=== PATIENT | male | born 1955 ===

== ENCOUNTER 2020-09-26 12:19 | Outpatient (CLI) | payer MEDICARE, SELFPAY | END 2020-09-26 12:20 | disposition home or self-care (01) | LOC: CHSIMG 12:25 | PROVIDERS: PCP Physician Assistant; Visit Provider Specialist | DX: I34.0 Nonrheumatic mitral (valve) insufficiency (principal) | CPT/HCPCS: 93306 ==

== ENCOUNTER 2021-05-04 08:17 | Outpatient (CLI) | payer MEDICARE, SELFPAY ==
--- NOTE | ~2021-05-04 | XR_ITS ---
EXAMINATION: XR sacroiliac joints min 3V INDICATION: Acute left hip pain TECHNIQUE: Three views of the sacroiliac joints are obtained. COMPARISON: None available FINDINGS: There is no fracture, dislocation, or subluxation. No abnormal sclerosis or erosion of the sacroiliac joints is identified. Calcified atherosclerosis is noted. There is moderate osteoarthritis of the hips. IMPRESSION: 1. No acute osseous abnormality. Reviewed, dictated and finalized at location B.
--- NOTE | ~2021-05-04 | XR_ITS ---
EXAMINATION: XR hip LT 2V w AP pelvis INDICATION: Left hip pain TECHNIQUE: AP view the pelvis and two views of the left hip are obtained. COMPARISON: None available FINDINGS: Bone alignment is normal. There is no fracture. There is moderate osteoarthritis of the hip s. Lumbar spondylosis is noted. There is calcified atherosclerosis. IMPRESSION: 1. No acute osseous abnormality. Reviewed, dictated and finalized at location B.
== END 2021-05-04 08:18 | disposition home or self-care (01) ==
PROVIDERS: PCP Physician Assistant; Visit Provider Nurse Practitioner
DX: M25.552 Pain in left hip (principal)
CPT/HCPCS: 72202; 73502

== ENCOUNTER 2021-11-23 08:57 | Outpatient (CLI) | payer MEDICARE, SELFPAY ==
[2021-11-23 09:26] LABS: Basophils Absolute Auto 0.07 K/mm3 (0.00-0.10); Eosinophils Absolute Auto 0.32 K/mm3 (0.02-0.50); Eosinophils Percent Auto 4.5 % (1.0-6.0); Hematocrit 48.1 % (37.0-46.0); Hemoglobin 15.5 g/dL (12.4-15.3); Immature Granulocyte Absolute 0.03 K/mm3 (0.00-0.00); Immature Granulocyte Percent A 0.4 % (0.0-0.0); Lymphocytes Absolute Auto 1.78 K/mm3 (1.10-4.50); Lymphocytes Percent Auto 25.1 % (18.0-42.0); Mean Corpuscular HGB Conc 32.2 g/dL (32.0-36.0); Mean Corpuscular Hemoglobin 32.9 pg (27.0-31.0); Mean Corpuscular Volume 102.1 fL (78.0-102.0); Mean Platelet Volume 10.7 fl (8.7-11.0); Monocytes Absolute Auto 0.51 K/mm3 (0.10-0.90); Monocytes Percent Auto 7.2 % (2.0-11.0); Neutrophils Absolute Auto 4.4 K/mm3 (1.7-7.2); Neutrophils Percent Auto 61.8 % (50.0-70.0); Platelet Count Result 221 K/mm3 (150-420); Red Blood Count 4.71 M/mm3 (4.70-6.10); Red Cell Distribution Width 12.4 % (11.6-14.4); White Blood Count 7.1 K/mm3 (4.8-10.8)
[2021-11-23 09:39] LABS: Prothrombin Time 10.8 Seconds (9.50-12.10)
[2021-11-23 10:20] LABS: Anion Gap 9 mmol/L (8-16); Blood Urea Nitrogen 27 mg/dL (7-18); Calcium 8.9 mg/dL (8.5-10.1); Carbon Dioxide 25 mmol/L (21-32); Chloride 100 mmol/L (98-108); Estimated Glomerular Filt Rate 46; Glucose 106 mg/dL (70-99); Magnesium 2.2 mg/dL (1.8-2.4); Osmolality Calculated 283 mOsm/kg (285-295); Potassium 4.6 mmol/L (3.5-5.1); Sodium 134 mmol/L (136-145)
== END 2021-11-23 08:58 | disposition home or self-care (01) ==
LOC: CHSLAB 09:02
PROVIDERS: PCP Physician Assistant; Visit Provider Specialist
DX: R94.39 Abnormal result of other cardiovascular function study (principal); Z95.1 Presence of aortocoronary bypass graft; I25.5 Ischemic cardiomyopathy; I25.119 Atherosclerotic heart disease of native coronary artery with unspecified angina pectoris
CPT/HCPCS: 36415; 80048; 83735; 85025; 85610

== ENCOUNTER 2022-10-09 11:12 | Outpatient (CLI) | payer MEDICARE, SELFPAY ==
[2022-10-09 11:37] LABS: Basophils Absolute Auto 0.06 K/mm3 (0.00-0.10); Basophils Percent Auto 0.7 % (0.0-1.0); Eosinophils Absolute Auto 0.37 K/mm3 (0.02-0.50); Eosinophils Percent Auto 4.2 % (1.0-6.0); Hematocrit 43.8 % (37.0-46.0); Hemoglobin 14.6 g/dL (12.4-15.3); Immature Granulocyte Absolute 0.04 K/mm3 (0.00-0.00); Immature Granulocyte Percent A 0.4 % (0.0-0.0); Lymphocytes Absolute Auto 1.95 K/mm3 (1.10-4.50); Lymphocytes Percent Auto 21.9 % (18.0-42.0); Mean Corpuscular HGB Conc 33.3 g/dL (32.0-36.0); Mean Corpuscular Hemoglobin 32.3 pg (27.0-31.0); Mean Corpuscular Volume 96.9 fL (78.0-102.0); Mean Platelet Volume 9.6 fl (8.7-11.0); Monocytes Absolute Auto 0.51 K/mm3 (0.10-0.90); Monocytes Percent Auto 5.7 % (2.0-11.0); Neutrophils Percent Auto 67.1 % (50.0-70.0); Platelet Count Result 223 K/mm3 (150-420); Red Blood Count 4.52 M/mm3 (4.70-6.10); Red Cell Distribution Width 13.4 % (11.6-14.4); White Blood Count 8.9 K/mm3 (4.8-10.8)
[2022-10-09 11:57] LABS: Hemoglobin A1C 5.9 % (<5.7)
[2022-10-09 12:10] LABS: Alanine Aminotransferase 33 U/L (16-63); Albumin Level 3.7 g/dL (3.4-5.0); Alkaline Phosphatase 98 U/L (46-116); Anion Gap 9 mmol/L (8-16); Aspartate Amino Transferase 23 U/L (15-37); Bilirubin,Total 0.9 mg/dL (0.00-1.00); Blood Urea Nitrogen 23 mg/dL (7-18); Calcium 8.7 mg/dL (8.5-10.1); Carbon Dioxide 27 mmol/L (21-32); Chloride 100 mmol/L (98-108); Cholesterol 165 mg/dL (0-200); Estimated Glomerular Filt Rate 51; Glucose 117 mg/dL (70-99); HDL Direct 61 mg/dL (40-60); LDL Cholesterol Calculated 91 mg/dL (<130); Osmolality Calculated 286 mOsm/kg (285-295); Potassium 4.6 mmol/L (3.5-5.1); Sodium 136 mmol/L (136-145); Thyroid Stimulating Hormone 2.78 uIU/mL (0.36-3.74); Total Protein 7.3 g/dL (6.4-8.2); Triglycerides 64 mg/dL (0-150)
== END 2022-10-09 11:13 | disposition home or self-care (01) ==
PROVIDERS: PCP Physician Assistant; Visit Provider Physician Assistant
DX: I10 Essential (primary) hypertension (principal); E78.5 Hyperlipidemia, unspecified; R73.03 Prediabetes; Z13.21 Encounter for screening for nutritional disorder
CPT/HCPCS: 36415; 80053; 80061; 83036; 84443; 85025

== ENCOUNTER 2023-12-18 14:59 | Emergency (ER) | payer MEDICARE, SELFPAY ==
--- NOTE | ~2023-12-18 | CT_ITS ---
CT abdomen pelvis wo con Ordering provider: Greg Patel MD History: 68 years Male with . back/flank pain radiating to his right groin . Comparison: None. Technique: CT abdomen and pelvis without IV and without oral contrast. Radiation reduction technique utilized.DLP is 827.11mGy. Findings: VISUALIZED LOWER CHEST: Normal. UPPER ABDOMINAL ORGANS: Liver: Normal. Gallbladder: Status post cholecystectomy. Spleen: Normal. Stomach/duodenum: Sliding hiatus hernia. Pancreas: Normal. Adrenals: Normal. Kidneys: Small hypodensity in the left kidney upper pole most likely tiny cyst measuring 1.2 cm. PELVIC ORGANS: The bladder shows thickening of the wall of the urinary bladder which may indicate cys titis. Further evaluation advised. Enlarged prostate. BOWEL AND MESENTERY: Colon: No evidence of diverticulitis. Normal appendix. Small Bowel: Normal. No obstruction. Peritoneum/mesentery: No free air or free fluid. No mesenteric lymphadenopathy. RETROPERITONEUM: Mild atheromatous disease of the abdominal aorta. No retroperitoneal lymphadenopat hy. MUSCULOSKELETAL: Fat containing small umbilical hernia. Bilateral fat-containing inguinal hernias Superficial soft tissues: The superficial soft tissues are normal. Bones: Age appropriate degenerative changes of the spine. IMPRESSION: 1. Atrophic right kidney with surrounding fat stranding. 2. Thickened wall of the urinary bladder. There evaluation for cystitis or infiltrative processes ad vised. Enlarged prostate. Reviewed, dictated and finalized at location A. IMPRESSION: 1. Atrophic right kidney with surrounding fat stranding. 2. Thickened wall of the urinary bladder. There evaluation for cystitis or inf iltrative processes advised. Enlarged prostate.
[2023-12-18 15:00] VITALS: BP 155/76; PULSE 65; RESP 24; TEMP 36.8; O2SAT 99
[2023-12-18] MEDS: SODIUM CHLORIDE 0.9% IV 1,000 ML 999 ML IV CONT (15:27)
[2023-12-18] MEDS: KETOROLAC 30 MG/ML VIAL (*BKC) IV PUSH (15:30)
[2023-12-18 15:36] LABS: Appearance Urine Clear (Clear); Basophils Absolute Auto 0.03 K/mm3 (0.00-0.10); Basophils Percent Auto 0.4 % (0.0-1.0); Bilirubin Urine Negative (Negative); Blood Urine Negative (Negative); Color Urine Yellow (Yellow); Eosinophils Absolute Auto 0.41 K/mm3 (0.02-0.50); Eosinophils Percent Auto 5.9 % (1.0-6.0); Glucose Urine UA Negative (Negative); Hematocrit 43.4 % (37.0-46.0); Hemoglobin 14.5 g/dL (12.4-15.3); Immature Granulocyte Absolute 0.02 K/mm3 (0.00-0.00); Immature Granulocyte Percent A 0.3 % (0.0-0.0); Ketones Urine Negative (Negative); Leukocyte Esterase Ur Negative LEU/UL (Negative); Lymphocytes Absolute Auto 2.31 K/mm3 (1.10-4.50); Lymphocytes Percent Auto 33.1 % (18.0-42.0); Mean Corpuscular HGB Conc 33.4 g/dL (32-36); Mean Corpuscular Hemoglobin 31.9 pg (27.0-31.0); Mean Corpuscular Volume 95.4 fL (78.0-102.0); Monocytes Absolute Auto 0.53 K/mm3 (0.10-0.90); Monocytes Percent Auto 7.6 % (2.0-11.0); Neutrophils Absolute Auto 3.67 K/mm3 (1.70-7.20); Neutrophils Percent Auto 52.7 % (50.0-70.0); Nitrate Urine Negative (Negative); Platelet Count Result 229 K/mm3 (150-420); Protein Urine Negative (Negative); Red Blood Count 4.55 M/mm3 (4.70-6.10); Red Cell Distribution Width 13.2 % (11.6-14.4); Urobilinogen Urine 0.2 mg/dL (0.2-1.0)
[2023-12-18 15:39] LABS: Add Urine Microscopic? NO
[2023-12-18 15:51] LABS: Alanine Aminotransferase 26 U/L (16-63); Albumin Level 3.5 g/dL (3.4-5.0); Alkaline Phosphatase 87 U/L (46-116); Anion Gap 9 mmol/L (4-12); Aspartate Amino Transferase 19 U/L (15-37); Bilirubin,Total 0.9 mg/dL (0.00-1.00); Blood Urea Nitrogen 15 mg/dL (7-18); Calcium 8.7 mg/dL (8.5-10.1); Carbon Dioxide 25 mmol/L (21-32); Chloride 102 mmol/L (98-108); Estimated CRCL calculation 55 ml/min; Estimated Glomerular Filt Rate 56; Glucose 99 mg/dL (70-99); Osmolality Calculated 282 mOsm/kg (285-295); Potassium 3.8 mmol/L (3.5-5.1); Sodium 136 mmol/L (136-145); Total Protein 7.5 g/dL (6.4-8.2)
[2023-12-18 15:52] LABS: CRP < 0.1 mg/dL (0.0-0.9)
[2023-12-18 15:56] LABS: Lactic Acid Reflex 1.7 mmol/L (0.4-2.0)
--- NOTE | 2023-12-18 16:54 | ED.BACK ---
HPI - Back Pain/Injury General Chief Complaint: Back Pain/Injury Stated Complaint: right lower back pain Source: patient Mode of arrival: ambulatory Limitations: no limitations History of Present Illness HPI Narrative: this is a 68-year-old gentleman with no significant past medical history presents with back pain lumbar spinal area right paravertebral area with no radiculopathy has been having some groin discomfort with no abdominal pain no dysuria no hematuria no nausea vomiting no fever chills. MD elicited complaint: back pain Pertinent past history: prior back pain Onset (ago): day(s) Timing: constant Severity: moderate Pain scale (0-10): 8 Quality: dull and aching Related Data Home Medications Medication Instructions Recorded Confirmed amlodipine 5 mg tablet 5 mg PO DAILY 12/18/23 12/18/23 aspirin 81 mg tablet,delayed 81 mg PO DAILY 12/18/23 12/18/23 release atorvastatin 40 mg tablet 40 mg PO DAILY 12/18/23 12/18/23 carvedilol 25 mg tablet 25 mg PO BID 12/18/23 12/18/23 furosemide 20 mg tablet 20 mg PO DAILY 12/18/23 12/18/23 lisinopril 10 mg tablet 10 mg PO DAILY 12/18/23 12/18/23 Allergies Allergy/AdvReac Type Severity Reaction Status Date / Time No Known Allergies Allergy Unverified 12/18/23 15:07 Review of Systems Review of Systems: All systems reviewed & are unremarkable except as noted in HPI and below PMFSH Past Medical History Medical History Patient denies medical problems Social History Social History Smoking status: Never smoker Alcohol intake: current Exam Const: General: healthy appearing, no acute distress and alert Nutritional Appearance: well nourished Orientation/consciousness: patient oriented x3 Limitations: no limitations Neck: Neck: normal visual inspection and no lymphadenopathy Chest: Chest palpation & inspection: normal inspection of the chest Resp: Effort & Inspection: normal respiratory effort Auscultation: clear to auscultation bilaterally Cardio: Rate: regular rate Rhythm: regular rhythm GI: GI Palp: Yes Soft to palpation Auscultation: normal bowel sounds : General: Yes bladder normal to palpation Urinary Catheter: Urinary Catheter: patent and draining Back/Spine/Pelvis: Back: no CVA tenderness Skin: General skin exam: normal color Rashes: no rashes Neuro: General: patient oriented x3, moves all extremities, no meningeal signs and no focal motor deficits Extrem: Other: right lumbar paravertebral tenderness with palpation Course Course Emergency Course: CT scan shows no acute process does show a large prostate advised patient to follow with his primary, pain level has has improved with IV Toradol. Labs reviewed UA reviewed and all within normal limits Vital Signs Vital signs: Vital Signs Temperature 36.8 C 12/18/23 15:00 Pulse Rate 65 12/18/23 15:00 Respiratory Rate 24 H 12/18/23 15:00 Blood Pressure 155/76 H 12/18/23 15:00 Pulse Oximetry 99 12/18/23 15:00 Oxygen Delivery Room Air 12/18/23 15:00 Temperature 36.8 C 12/18/23 15:00 Pulse Rate 65 12/18/23 15:00 Respiratory Rate 24 H 12/18/23 15:00 Blood Pressure 155/76 H 12/18/23 15:00 Pulse Oximetry 99 12/18/23 15:00 Oxygen Delivery Room Air 12/18/23 15:00 MDM - Back Pain/Injury Lab Data 12/18/23 15:22 12/18/23 15:22 Labs: Lab Results 12/18/23 Range/Units 15:22 WBC 7.0 (4.8-10.8) K/mm3 RBC 4.55 L (4.70-6.10) M/mm3 Hgb 14.5 (12.4-15.3) g/dL Hct 43.4 (37.0-46.0) % MCV 95.4 (78.0-102.0) fL MCH 31.9 H (27.0-31.0) pg MCHC 33.4 (32-36) g/dL RDW 13.2 (11.6-14.4) % Plt Count 229 (150-420) K/mm3 MPV 10.0 (8.7-11.0) fl Immature Gran % (Auto) 0.3 H (0.0-0.0) % Neut % (Auto) 52.7 (50.0-70.0) % Lymph % (Auto) 33.1 (18.0-42.0) % [place] % (Auto) 7.6 (2
[2023-12-18 17:08] VITALS: BP 134/74; PULSE 61; RESP 18; TEMP 36.8; O2SAT 98
== END 2023-12-18 17:10 | disposition home or self-care (01) ==
PROVIDERS: Emergency Provider Emergency Medicine; PCP Physician Assistant
DX: S39.012A Strain of muscle, fascia and tendon of lower back, initial encounter (principal); Z79.899 Other long term (current) drug therapy; Z79.82 Long term (current) use of aspirin; X58.XXXA Exposure to other specified factors, initial encounter
CPT/HCPCS: 36415; 74176; 80053; 81003; 83605; 85025; 86140; 96361; 96374; 99284; J1885; J7030

== ENCOUNTER 2024-07-14 10:30 | Outpatient (CLI) | payer MEDICARE, SELFPAY ==
--- NOTE | ~2024-07-14 | XR_ITS ---
XR hip RT min 2V Ordering provider: Crystal Cuadra, CARLOS ALBERTO History: . CHRONIC RIGHT HIP PAIN,NKI . Comparison: None. FINDINGS: BONES: No acute fracture or dislocation. HIP JOINT SPACES: Mild to moderate osteoarthritic changes. PUBIC SYMPHYSIS: Pubic symphysitis. SOFT TISSUES: Normal. IMPRESSION: No acute osseous abnormality pelvis and right hip. Reviewed, dictated and finalized at location A. H ATTENDANT
== END 2024-07-14 10:31 | disposition home or self-care (01) ==
LOC: CHSIMG 10:32
PROVIDERS: PCP Physician Assistant; Visit Provider Physician Assistant
DX: M25.551 Pain in right hip (principal)
CPT/HCPCS: 73502

== ENCOUNTER 2024-12-16 13:28 | Outpatient (CLI) | payer MEDICARE, SELFPAY ==
[2024-12-16 13:45] LABS: Basophils Absolute Auto 0.05 K/mm3 (0.00-0.10); Basophils Percent Auto 0.6 % (0.0-1.0); Eosinophils Absolute Auto 0.42 K/mm3 (0.02-0.50); Hematocrit 42.7 % (37.0-46.0); Immature Granulocyte Absolute 0.05 K/mm3 (0.00-0.00); Immature Granulocyte Percent A 0.6 % (0.0-0.0); Lymphocytes Absolute Auto 1.96 K/mm3 (1.10-4.50); Lymphocytes Percent Auto 23.4 % (18.0-42.0); Mean Corpuscular HGB Conc 32.8 g/dL (32-36); Mean Corpuscular Volume 97.7 fL (78.0-102.0); Mean Platelet Volume 9.8 fl (8.7-11.0); Monocytes Percent Auto 7.2 % (2.0-11.0); Neutrophils Percent Auto 63.2 % (50.0-70.0); Nucleated Red Blood Cells Absolute Auto 0.02 K/mm3 (0.00-0.00); Nucleated Red Blood Cells Perc 0.2 % (0-0.0); Platelet Count Result 240 K/mm3 (150-420); Red Blood Count 4.37 M/mm3 (4.70-6.10); Red Cell Distribution Width 13.1 % (11.6-14.4); White Blood Count 8.4 K/mm3 (4.8-10.8)
--- OUTSIDE RECORDS SUMMARY | 2024-12-16 13:45 | XMS_ITS | Clinical Summary ---
Author Organization [facility] Address [address] [place] [address] Care Team Providers Care Manager Wound Name Role Phone Crystal Cuadra Primary Care Provider [phone] Abran Hendrix MD Unavailable Allergies No known active allergies Medications aspirin EC (ASPIRIN EC) 81 MG tablet Take 1 tablet (81 mg total) by mouth daily. 4 Active amlodipine 5 MG tablet Take 1 tablet (5 mg total) by mouth daily. 4 Active atorvastatin 40 MG tablet Take 1 tablet (40 mg total) by mouth daily. Active nitroglycerin 0.[address] 1 tablet (0.4 mg total) under the tongue every 5 (five) minutes as needed for Chest Pain. Maximum of 3 doses. Active lisinopril 10 MG tablet Take 1 tablet (10 mg total) by mouth daily. 90 tablet 9 Active furosemide (LASIX) 20 MG tabletIndicatio ns:Essential hypertension,Co ronary artery disease involving shoalwater coronary artery of shoalwater heart without angina pectoris Take 1 tablet (20 mg total) by mouth daily. 90 tablet 2 4 Active carvedilol (COREG) 25 MG tabletIndicatio ns:Essential hypertension,Co ronary artery disease involving shoalwater coronary artery of sho[place]water heart without angina pectoris Take 1 tablet (25 mg total) by mouth 2 (two) times daily. 180 tablet 2 4 Active Additional Information Patient taking differently: 12.5 mgOral 2 times daily, Reported on 11/05/2024 spironolactone (ALDACTONE) 25 MG tablet Take 1 tablet (25 mg total) by mouth daily. 30 tablet 11 Active Active Problems Problem Noted Date Diagnosed Date Right shoulder pain 06/25/2024 Right hip pain 06/25/2024 Supraspinatus tendon tear 06/25/2024 Ischemic cardiomyopathy 07/30/2019 Primary osteoarthritis of left shoulder 02/20/20 19 Umbilical hernia 08/01/2015 Diastasis recti 08/01/2015 LA (myocardial infarction) ([facility]) 06/2015 S/P CABG x 3 06/30/2015 HTN (hypertension) Hypothyroid CAD (coronary artery disease) Resolved Problems Problem Noted Date Diagnosed Date Resolved Date Encounter for screening colonoscopy 12/02/2017 03/10/2020 Encounters Date Type Department Care Team Description 12/08[facility] [address] [place] [address] Abran Hendrix MD Results 12/08[facility]20[facility] [address] [place] [address] Abran Hendrix MD Results 12/07/2024 [facility] [address] [place] [address] Abran Hendrix MD Information 12/03/2024 8:45 AM CDT - 12/03/2024 11:59 PM CDT Hospital Encounter [facility] [address] [place] [address] Abran Hendrix MD Discharge Disposition: Home or Self Care (Routine Discharge) 12/03/2024 7:54 AM CDT - 12/03/2024 8:44 AM CDT Hospital Encounter [facility] [address] [place] [address] Abran Hendrix MD Discharge Disposition: Home or Self Care (Routine Discharge) 12/03/2024 Travel 11/05/2024 8:15 AM CDT Office Visit [facility] [address] [place] [address] Abran Hendrix MD Heart Problem 11/05/2024 7:39 AM CDT - 11/05/2024 11:59 PM CDT Hospital Encounter [facility] [address] [place] [address] Abran Hendrix MD Discharge Disposition: Home or Self Care (Routine Discharge) 11/05/2024 Travel 10/27/2024 [facility] [address] [place] [address] Abran Hendrix MD from Last 3 Months Family History Medical History Relation Comments Heart Attack Father Relation Status Comments Father Social History Tobacco Use Types Packs/Day Years Used Date Smoking Tobacco: Never Smokeless Tobacco: Never Alcohol Use Standard Drinks/Week Comments Yes 0 (1 standard drink = 0.6 oz pur e alcohol) 6 Sex and Gender Information Value Date Recorded Sex Assigned at Male 02/23/2019 8:56 AM CDT Legal Sex Male 11:42 PM CDT Gender Identity Male 02/23/2019 8:56 AM CDT Sexual Orientation Not on file 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 Not on file Not on file Last Filed Vital Signs Vital Sign Reading Time Taken Comments Blood Pressure 132/70 11/05/2024 8:10 AM CDT Manual Recheck Pulse 57 11/05/2024 8:10 AM CDT Temperature 6.4 C (43.5 F) 11/28/2021 11:00 AM CDT Respiratory Rate 18 11/05/2024 8:10 AM CDT Oxygen Saturation 99% 11/05/2024 8:1 0 AM CDT Inhaled Oxygen Concentration - - Weight 95.1 kg (209 lb 9.6 oz) 11/05/2024 8:10 AM CDT Height 182.9 cm (6') 11/05/2024 8:10 AM CDT Body Mass Index 28.43 11/05/2024 8:10 AM CDT Plan of Treatment Upcoming Encounters Date Type Department Care Team (Late st Contact Info) Description 06/01/2025 8:15 AM BRICK [facility]URNER Office Visit [facility] [address] [place] [address] Abran Hendrix MD [address] [place] [address] Health Maintenance Due Date Last Done Comments ASCVD Statin 1955 Colorectal Cancer Screening Colonoscopy (10 Years) 1955 Hepatitis C 1973 Pneumococcal Vaccine: 50+ Years (1 of 2 - PCV) 1974 Zoster Vaccines (1 of 2) 2005 RSV Immunization or 60+ Years (1 - Risk 60-74 years 1-dose series) 2015 Annual Medicare Wellness Visit 01/16/2020 COVID-19 Vaccine (4 - 2023-2 5 season) 2024 05/02/2021, 10/06/2020, 09/06/2020 DTaP, Tdap and Td Vaccines ( 2 - Td or Tdap) 09/09/2026 09/09/2016 Meningococcal B Vaccine Aged Out No l onger eligible based on patient's age to complete this topic Meningococcal Vaccine Aged Out No brandi katie eligible based on patient's age to complete this topic RSV Immunizations Under 20 Months Aged Out No longer eligible b ased on patient's age to complete this topic Procedures Procedure Name Priority Date/Time Associated Diagnosis Comments THYROID STIM HORMONE TSH Routine 12/03/2024 8:53 AM CDT Hyperlipidemia, mixed CBC, AUTO, NO DIFF Routine 12/03/2024 8: 53 AM CDT Hyperlipidemia, mixed LIPID PANEL Routine 12/03/2024 8:53 AM CDT Hyperlipidemia, mixed COMPREHENSIVE METABOLIC PANEL Routine 12/03/2024 8:53 AM CDT Hyperlipidemia, mixed USE ECHOCARDIOGRAM Routine 12/03/2024 8: 44 AM CDT Primary hypertension Localized edema USV CAROTID DUPLEX JAYNE Routine 8:44 AM CDT Primary hypertension Localized edema Carotid bruit ECG 12-LEAD Routine 11/05/2024 7:45 AM CDT Hypertension, unspecified type from Last 3 Months Results * (ABNORMAL) COMPREHENSIVE METABOLIC PANEL (12/03/2024 8:53 AM CDT) SODIUM S/P/B 131(L) 136 - 145 MMOL/L 12/03/2024 9:22 AM CDT [facility] POTASSIUM S/P/B 4.5 3.5 - 5.1 MMOL/L 12/03/2024 9:22 AM CDT [facility] CHLORIDE S/P/B 97(L) 98 - 107 MMOL/L 12/03/2024 9:22 AM CDT [facility] CO2 24.4 21.0 - 32.0 MMOL/L 12/03/2024 9:22 AM CDT [facility] GLUCOSE 116(H) 70 - 99 MG/DL 12/03/2024 9:22 AM T [facility] Comment: FASTING GLUCOSE 100 TO 125 MG/DL IS CONSISTENT WITH IMPAIRED FASTING GLUCOSE. FASTING GLUCOSE >125 MG/DL IS CONSISTENT WITH DIABETES. RANDOM GLUCOSE >200 MG/DL WITH HYPERGLYCEMIC SYMPTOMS IS CONSISTENT WITH DIABETES. PER ADA GUIDELINES BUN 28(H) 6 - 24 MG/DL 12/03/2024 9:22 AM CDT [facility] CREATININE S/P/B 1.46(H) 0.70 - 1.30 MG/DL 12/03/2024 9:22 AM CDT [facility] CALCIUM S/P/B 9.3 8.4 - 10.5 MG/DL 12/03/2024 9:22 AM T [facility] BILIRUBIN TOTAL S/P/B 1.1(H) 0.2 - 1.0 MG/DL 12/03/2024 9:22 AM T [facility] Comment: THIS ASSAY IS NOT RECOMMENDED FOR PATIENTS UNDERGOING TREATMENT WITH ELTROMBOPAG DUE TO THE POTENTIAL FOR FALSELY ELEVATED RESULTS. ALKALINE PHOSPHATASE S/P/B 115 45 - 115 U/L 12/03/2024 9:22 AM CDT [facility] AST 20 15 - 37 U/L 12/03/2024 9:22 AM CDT [facility] ALT 37 16 - 63 U/L 12/03/2024 9:22 AM CDT [facility] TOTAL PROTEIN S/P/B 8.2 6.4 - 8.2 G/DL 12/03/2024 9:22 AM CDT [facility] ALBUMIN S/P/B 3.8 3.4 - 5.0 G/DL 12/03/2024 9:22 AM CDT [facility] ANION GAP 9.6 5.0 - 15.0 MMOL/L 12/03/2024 9:22 AM CDT [facility] OSMOLALITY (CALC) 278 MOSM/KG 025 9:22 AM CDT [facility] Comment:REFERENCE RANGE NOT ESTABLISHED GFR ESTIMATE 52(L) >89 ML/MIN/1. 73 M2 12/03/2024 9:22 AM CDT [facility] GFR NOTES GFR REFERENCE S: 12/03/2024 9:22 AM CDT [facility] Comment: THE ESTIMATED GFR IS CALCULATED USING THE 2020 CKD-EPI EQUATION. THE FOLLOWING CATEGORIES FOR GRADING RENAL FUNCTION ARE RECOMMENDED BY THE INTERNATIONAL SOCIETY OF NEPHROLOGY (KDIGO 2012 CLINICAL PRACTICE GUIDELINE). G1,NORMAL OR HIGH: >89 ml/min/1.73 m2 G2,MILDLY DECREASED: 60-89 ml/min/1.73 m2 G3A,MILDLY TO MODERATELY DECREASED: 45-59 ml/min/1.73 m2 G3B,MODERATELY TO SEVERELY DECREASED: 30-44 ml/min/1.73 m2 G4,SEVERELY DECREASED: 15-29 ml/min/1.73 m2 G5,KIDNEY FAILURE: <15 ml/min/1.73 m2 12/03/2024 8:53 AM CDT us Abran Hendrix MD LABORATORY Final Result [facility] [address] [place] [address], * LIPID PANEL (12/03/2024 8:53 AM CDT) CHOLESTEROL 144 MG/DL 12/03/2024 12:13 PM CDT [facility] Comment:DESIRABLE: <200 TRIGLYCERIDES 130 MG/DL 12/03/2024 12:13 PM CDT [facility] Comment:<150 NORMAL HDL 46 >39 MG/DL 12/03/2024 12:13 PM CDT [facility] LDL-C 72 MG/DL 12/03/2024 12:13 PM CDT [facility] Comment:<100 OPTIMAL VLDL CALCULATION 26 MG/DL 12/04/19 25 12:13 PM CDT [facility] Comment:REFERENCE RANGE NOT ESTABLISHED CHOL/HDL RATIO 3.1 12/03/2024 12:13 PM CDT [facility] Comment:REFERENCE RANGE NOT ESTABLISHED LDL/HDL 1.6 12/03/2024 12:13 PM CDT [facility] Comment:REFERENCE RANGE NOT ESTABLISHED NON HDL CHOLESTEROL 98 MG/DL 12/03/2024 12:13 PM CDT [facility] Comment:REFERENCE RANGE NOT ESTABLISHED 12/03/2024 8:53 AM CDT us Abran Hendrix MD LABORATORY Final Result [facility] [address] [place] [address], [id number] * (ABNORMAL) CBC, AUTO, NO DIFF (12/03/2024 8:53 AM CDT) WBC 8.99 4.00 - 10.80 x10'3/uL 12/03/2024 8:59 AM CDT [facility] RBC 4.58 4.50 - 6.10 x10'6/uL 12/03/2024 8:59 AM CDT [facility] HGB 14.7 13.0 - 18.0 G/DL 12/03/2024 8:59 AM CDT [facility] HCT 43.8 37.0 - 52.0 % 12/03/2024 8:59 AM CDT [facility] MCV 95.6 78.0 - 100.0 FL 12/03/2024 8:59 AM CDT [facility] MCH 32.1(H) 27.0 - 31.0 PG 12/03/2024 8:59 AM CDT [facility] MCHC 33.6 33.0 - 36.0 G/DL 12/03/2024 8:59 AM CDT [facility] RDW 12.7 11.5 - 14.5 % 12/03/2024 8:59 AM CDT [facility] PLT 228 150 - 350 x10'3/uL 12/03/2024 8:59 AM CDT [facility] MPV 9.9 7.4 - 10.4 FL 12/03/2024 8:59 AM CDT [facility] 12/03/2024 8:53 AM CDT us Abran Hendrix MD LABORATORY Final Result Performing Organization Address City/[facility]/ZIP Co de Phone Number [facility] [address] [place] [address], [place] [phone] * TSH (12/03/2024 8:53 AM CDT) TSH 3.322 0.358 - 3.740 uIU/ML 12/03/2024 9:22 AM CDT [facility] Comment: ASSAY PERFORMED BY CHEMILUMINESCENT IMMUNOASSAY METHODOLOGY USING SIEMENS DIMENSION REAGENT. PATIENT RESULTS DETERMINED BY ASSAYS FROM DIFFERENT MANUFACTURERS AND/OR BY DIFFERENT METHODS MAY NOT BE COMPARABLE. 12/03/2024 8:53 AM CDT us Abran Hendrix MD LABORATORY Final Result [facility] [place] [address], [place] [phone] * USE ECHOCARDIOGRAM (12/03/2024 8:44 AM CDT) Anatomical Region Laterality Modality Cardiac Ultrasound 12/03/2024 8:02 AM CDT Narrative 12/04/2024 5:26 PM CDT Echocardiography Report Pat.Name: Luiz Mason Pat.ID: [id number] .Date: 12/03/2024 Refer.MD: Carolynn, [facility] Exam Time: 8:02:00 AM Study Type:CAROLYNN Height: 72 in Weight: 200 lb BSA: 2.13 m2 Age: 7 1955,69Y Sex: M Sonogrphr: Sf Pat. Stat.:Outpatient Reason for Study:Primary hypertension, Localized edema Procedures: Study performed at [place], [place] and interpreted by [facility]. 2D, M-mode, Doppler, Color Flow ++++++++++++++++++++++++++++++++++++ SUMMARY: ++++++++++++++++++++++++++++++++++++ The left ventricular size is normal. Estimated left ventricular ejection fraction is 60-65%. Left ventricular diastolic function is abnormal (grade 1 - impaired relaxation). The right ventricular size is normal. Right ventricular systolic function is normal. Right ventricular systolic pressure is 31 mmHg. Mild mitral regurgitation. Mild tricuspid regurgitation. ++++++++++++++++++++++++++++++++++++ FINDINGS: ++++++++++++++++++++++++++++++++++++ LV: The left ventricular size is normal. The left ventricular systolic function is normal. Estimated left ventricular ejection fraction is 60-65%. Left ventricular diastolic function is abnormal (grade 1 - impaired relaxation). RV: The right ventricular size is normal. Right ventricular systolic function is normal. Right ventricular systolic pressure is 31 mmHg. LA: Left atrial size is normal. RA: The right atrial size is normal. HUDSON: No evidence of pericardial effusion. AO: Aorta is normal. SVn: Inferior vena cava is normal. AV: The aortic valve is trileaflet. There is no aortic stenosis. There is no evidence of aortic regurgitation. MV: Structurally normal mitral valve. Mild mitral regurgitation. PV: The pulmonic valve is normal There is trace pulmonic regurgitation TV: Structurally normal tricuspid valve. Mild tricuspid regurgitation. <Electronic Signature> 12/04/2024 05:26 PM Abran Hendrix M.D. Procedure Note Abran Hendrix MD - 12/04/2024 Echocardiography Report Pat.Name: Luiz Mason Pat.ID: [id number] .Date: 12/03/2024 Refer.MD: Carolynn, [facility] Exam Time: 8:02:00 AM Study Type:OUTREACH Height: 72 in Weight: 200 lb BSA: 2.13 m2 Age: 7 1955,69Y Sex: M Sonogrphr: Sf Pat. Stat.:Outpatient Reason for Study:Primary hypertension, Localized edema Procedures: Study performed at [place], [place] and interpreted by [facility]. 2D, M-mode, Doppler, Color Flow ++++++++++++++++++++++++++++++++++++ SUMMARY: ++++++++++++++++++++++++++++++++++++ The left ventricular size is normal. Estimated left ventricular ejection fraction is 60-65%. Left ventricular diastolic function is abnormal (grade 1 - impaired relaxation). The right ventricular size is normal. Right ventricular systolic function is normal. Right ventricular systolic pressure is 31 mmHg. Mild mitral regurgitation. Mild tricuspid regurgitation. ++++++++++++++++++++++++++++++++++++ FINDINGS: ++++++++++++++++++++++++++++++++++++ LV: The left ventricular size is normal. The left ventricular systolic function is normal. Estimated left ventricular ejection fraction is 60-65%. Left ventricular diastolic function is abnormal (grade 1 - impaired relaxation). RV: The right ventricular size is normal. Right ventricular systolic function is normal. Right ventricular systolic pressure is 31 mmHg. LA: Left atrial size is normal. RA: The right atrial size is normal. HUDSON: No evidence of pericardial effusion. AO: Aorta is normal. SVn: Inferior vena cava is normal. AV: The aortic valve is trileaflet. There is no aortic stenosis. There is no evidence of aortic regurgitation. MV: Structurally normal mitral valve. Mild mitral regurgitation. PV: The pulmonic valve is normal There is trace pulmonic regurgitation TV: Structurally normal tricuspid valve. Mild tricuspid regurgitation. <Electronic Signature> 12/04/2024 05:26 PM Abran Hendrix M.D. Abran Hendrix MD ECHO Final Result * USV CAROTID DUPLEX JAYNE (12/03/2024 8:44 AM CDT) Anatomical Region Laterality Modality Neck Ultrasound 12/03/2024 8:26 AM CDT Narrative 12/04/2024 11:51 AM CDT [facility] Carotid Ultrasound Vascular Report Pat.Name: Luiz Mason Pat.ID: [id number] .Date: 12/03/2024 Refer.MD: Carolynn, [facility] Exam Time: 8:26:00 AM Study Type:OUTREACH CAROTID SCAN BILATERAL Height: 72 in Age: 7 1955,69Y Sex: M Sonogrphr: Emiliano Pat. Stat.:Outpatient CPT - 4: 52170 Carotid Duplex Reason for Study:Primary hypertension, Localized edema, Carotid bruit Procedures: Study performed at [facility], [place], [place] and interpreted by [facility]. ++++++++++++++++++++++++++++++++++++ FINDINGS: ++++++++++++++++++++++++++++++++++++ Rt ICA: 0-39% stenosis with plaque noted in the internal carotid artery. Rt ECA: Patent with antegrade flow noted in the external carotid artery. Rt Vert: Normal antegrade vertebral flow. Lt ICA: 0-39% stenosis with plaque noted in the internal carotid artery. Lt ECA: Patent with antegrade flow noted in the external carotid artery. Lt Vert: Normal antegrade vertebral flow. Comments: Incidental finding of inhomgeneous area in the right thyroid. Follow up testing if clinically indicated. noted. Carotid Findings: Right Left Verteb.Flw Antegrade Antegrade ++++++++++++++++++++++++++++++++++++ MEASUREMENTS: ++++++++++++++++++++++++++++++++++++ DOPPLER Right Prox CCA Prox CCA PSV 133 cm/s Prox CCA EDV 19 cm/s Right Dist CCA Dist CCA PSV 70 cm/s Dist CCA EDV 14 cm/s Right Prox ICA Prox ICA PSV 64 cm/s Prox ICA EDV 11 cm/s Right Mid ICA Mid ICA PSV 44 cm/s Mid ICA EDV 11 cm/s Right Dist ICA Dist ICA PSV 75 cm/s Dist ICA EDV 13 cm/s Right Vertebral Vertebral PSV 40 cm/s Vertebral EDV 7 cm/s Right ICA/CCA RATIO ICA/CCA RATIO P 1.07 Left Prox CCA Prox CCA PSV 124 cm/s Prox CCA EDV 20 cm/s Left Dist CCA Dist CCA PSV 60 cm/s Dist CCA EDV 12 cm/s Left Prox ICA Prox ICA PSV 53 cm/s Prox ICA EDV 10 cm/s Left Mid ICA Mid ICA PSV 55 cm/s Mid ICA EDV 14 cm/s Left Dist ICA Dist ICA PSV 46 cm/s Dist ICA EDV 13 cm/s Left Vertebral Vertebral PSV 38 cm/s Vertebral EDV 7 cm/s Left ICA/CCA RATIO ICA/CCA RATIO P 0.917 <Electronic Signature> 12/04/2024 11:51 AM Abran Hendrix M.D. Procedure Note , Generic Conversion, - 12/04/2024 Outreach Carotid Ultrasound Vascular Report Pat.Name: Luiz Mason Pat.ID: [id number] St.Date: 12/03/2024 Refer.MD: Carolynn, [facility] Exam Time: 8:26:00 AM Study Type:OUTREACH CAROTID SCAN BILATERAL Height: 72 in Age: 7 1955,69Y Sex: M Sonogrphr: Sf Pat. Stat.:Outpatient CPT - 4: 85889 Carotid Duplex Reason for Study:Primary hypertension, Localized edema, Carotid bruit Procedures: Study performed at [facility], [place], [place] and interpreted by [facility]. ++++++++++++++++++++++++++++++++++++ FINDINGS: ++++++++++++++++++++++++++++++++++++ Rt ICA: 0-39% stenosis with plaque noted in the internal carotid artery. Rt ECA: Patent with antegrade flow noted in the external carotid artery. Rt Vert: Normal antegrade vertebral flow. Lt ICA: 0-39% stenosis with plaque noted in the internal carotid artery. Lt ECA: Patent with antegrade flow noted in the external carotid artery. Lt Vert: Normal antegrade vertebral flow. Comments: Incidental finding of inhomgeneous area in the right thyroid. Follow up testing if clinically indicated. noted. Carotid Findings: Right Left Verteb.Flw Antegrade Antegrade ++++++++++++++++++++++++++++++++++++ MEASUREMENTS: ++++++++++++++++++++++++++++++++++++ DOPPLER Right Prox CCA Prox CCA PSV 133 cm/s Prox CCA EDV 19 cm/s Right Dist CCA Dist CCA PSV 70 cm/s Dist CCA EDV 14 cm/s Right Prox ICA Prox ICA PSV 64 cm/s Prox ICA EDV 11 cm/s Right Mid ICA Mid ICA PSV 44 cm/s Mid ICA EDV 11 cm/s Right Dist ICA Dist ICA PSV 75 cm/s Dist ICA EDV 13 cm/s Right Vertebral Vertebral PSV 40 cm/s Vertebral EDV 7 cm/s Right ICA/CCA RATIO ICA/CCA RATIO P 1.07 Left Prox CCA Prox CCA PSV 124 cm/s Prox CCA EDV 20 cm/s Left Dist CCA Dist CCA PSV 60 cm/s Dist CCA EDV 12 cm/s Left Prox ICA Prox ICA PSV 53 cm/s Prox ICA EDV 10 cm/s Left Mid ICA Mid ICA PSV 55 cm/s Mid ICA EDV 14 cm/s Left Dist ICA Dist ICA PSV 46 cm/s Dist ICA EDV 13 cm/s Left Vertebral Vertebral PSV 38 cm/s Vertebral EDV 7 cm/s Left ICA/CCA RATIO ICA/CCA RATIO P 0.917 <Electronic Signature> 12/04/2024 11:51 AM Abran Hendrix M.D. Abran Hendrix MD [facility] Final Result * ECG 12 lead (HOSPITAL PERFORMED ONLY) (11/05/2024 7:45 AM CDT) 11/05/2024 7:45 AM CDT Narrative [facility] - 11/05/2024 8:[address] PM [address] [place] [address] Test Date: 2024-11-05 Pat Name: [facility] Department: 3 Room: Gender: Male Physical Ther: [facility] : 1955 Requested By: ABRAN HENDRIX Order Number: [id number] Reading MD: Abran Hendrix Measurements Intervals [place] Rate: 60 P: 38 VT: 152 QRS: 7 QRSD: 98 T: 34 QT: 399 QTc: 400 Interpretive Statements SINUS RHYTHM NONSPECIFIC T-WAVE ABNORMALITY Procedure Note Abran Hendrix MD - 11/05/[address] 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
--- OUTSIDE RECORDS SUMMARY | 2024-12-16 13:45 | XMS_ITS | Encounter Summary ---
Author Organization [facility] Address [address] [place] [address] Care Team Providers Care Oracle Soa Architect Name Role Phone Crystal Cuadra Primary Care Provider [phone] Javon Mcintosh MD Unavailable [phone] Felicia Kamaar MD Unavailable Encounter Details Date Type Department Care Team (Late Contact Info) Description 12/05/2018 Abstract [facility] [address], [place] [id number] , Generic ConversionMD Social History Tobacco Use Types Packs/Day Years Used Date Smoking Tobacco: Never Smokeless Tobacco: Never Alcohol Use Standard Drinks/Week Comments No 0 (1 standard drink = 0.6 oz pur e alcohol) Sex and Gender Information Value Date Recorded Sex Assigned at Male 02/23/2019 8:56 AM CDT Legal Sex Male 11:42 PM CDT Gender Identity Male 02/23/2019 8:56 AM CDT Sexual Orientation Not on file 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 file Not on file documented as of this encounter Plan of Treatment Upcoming Encounters Date Type Department Care Team (Late Contact Info) Description 06/01/2025 8:15 AM CARAMEL CUTTER HAND Office Visit [facility] [address] [place] [id number] Felicia Kamara MD [address], [place] [id number] documented as of this encounter Visit Diagnoses Not on filedocumented in this encounter Care Teams Oracle Soa Architect Relationship Specialty Start Date End Date Crystal Cuadra PA [address] [place] [address] PCP - General 11/10/17 Javon Mcintosh MD [address] [place] [address] Cammal Mud Analysis Operator CARDIOVASCULAR DISEASE 11/10/17 10/21/23 Felicia Kamara MD [address] [place] [address] Consulting Physician CARDIOVASCULAR DISEASE 10/22/23 documented as of this encounter
--- OUTSIDE RECORDS SUMMARY | 2024-12-16 13:45 | XMS_ITS | Encounter Summary ---
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 No / Unsure 11/08/2021 6:44 AM CDT documented as of this encounter Plan of Treatment Upcoming Encounters Date Type Department Care Team (Late Contact Info) Description 06/01/2025 8:15 AM SOLID PROPELLANT PROCESSOR Office Visit [facility] [place] [phone] Felicia Kamara MD [address] [place] [address] documented as of this encounter Visit Diagnoses Not on filedocumented in this encounter Care Teams Work Checker Relationship Specialty Start Date End Date Crystal Cuadra PA [address] [place] [address] PCP - General 11/10/17 Javon Mcintosh MD [address] [place] [address] [employer] Foreman CARDIOVASCULAR DISEASE 11/10/17 10/21/23 Felicia Kamara MD [address] [place] [address] Consulting Physician CARDIOVASCULAR DISEASE 10/22/23 documented as of this encounter
--- OUTSIDE RECORDS SUMMARY | 2024-12-16 13:45 | XMS_ITS | Encounter Summary ---
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 Not on file Not on file documented as of this encounter Plan of Treatment Upcoming Encounters Date Type Department Care Team (Late Contact Info) Description 06/01/2025 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 [facility] [place] [address] Felicia Kamara MD [address] [place] [phone] documented as of this encounter Procedures Procedure Name Priority Date/Time Associated Diagnosis Comments LIPID PANEL (OUTSIDE LAB) Routine 07/20/2019 CMP (ABSTRACTED LAB) Routine 07/20/2019 TSH (OUTSIDE LAB) Routine 07/20/2019 CBC (OUTSIDE LAB) Routine 07/20/2019 HEMOGLOBIN, GLYCOSYLATED Routine 07/20/2019 documented in this encounter Results * HEMOGLOBIN, GLYCOSYLATED (07/20/2019) HGB A1C 5.7 07/20/2019 us Doc [facility] Abstract LABORATORY Final Result * TSH (OUTSIDE LAB) (07/20/2019) TSH 2.5 07/20/2019 us Doc [facility] Abstract LAB-OUTSIDE/ABSTRACTED Final Result * LIPID PANEL (OUTSIDE LAB) (07/20/2019) Pathologist [facility] CHOLESTEROL 156 TRIGLYCERIDES 79 HDL 52 LDL (CALCULATED) 88 VLDL CALCULATION 16 07/20/2019 us Doc [facility] Abstract LAB-OUTSIDE/ABSTRACTED Final Result * (ABNORMAL) CMP (ABSTRACTED LAB) (07/20/2019) SODIUM S/P/B 139 POTASSIUM S/P/B 4.3 CHLORIDE S/P/B 103 CO2 17 BUN 15 CREATININE S/P/B 1.39(A) 0.7 - 1.3 EGFR AFR. AMER. 61 EGFR NON-AFR. AMER. 53 <=90 CALCIUM S/P/B 9.6 GLUCOSE 202 mg/dL TOTAL PROTEIN S/P/B 7.5 ALBUMIN S/P/B 4.6 3.5 - 5.0 AST 22 ALT 19 ALKALINE PHOSPHATASE S/P/B 99 BILIRUBIN TOTAL S/P/B 1.1 07/20/2019 us Doc [facility] Abstract LAB-OUTSIDE/ABSTRACTED Final Result * CBC (OUTSIDE LAB) (07/20/2019) WBC 6.7 HGB 15.5 HCT 44.9 PLT 256 07/20/2019 us Doc [facility] Abstract LAB-OUTSIDE/ABSTRACTED Final Result documented in this encounter Visit Diagnoses Not on filedocumented in this encounter Care Teams Parts Sales Manager Relationship Specialty Start Date End Date Crystal Cuadra PA [address] [facility] [place] [address] PCP - General 11/10/17 Javon Mcintosh MD [address] [place] [address] [place] Director Of Retail Marketing CARDIOVASCULAR DISEASE 11/10/17 10/21/23 Felicia Kamara MD [address] [place] [address] Consulting Physician CARDIOVASCULAR DISEASE 10/22/23 documented as of this encounter
[2024-12-16 14:04] LABS: Alanine Aminotransferase 25 U/L (6-50); Albumin Level 4.4 g/dL (3.5-5.1); Alkaline Phosphatase 102 U/L (38-126); Anion Gap 8 mmol/L (4-12); Aspartate Amino Transferase 28 U/L (17-59); Blood Urea Nitrogen 23 mg/dL (9-20); Calcium 9.3 mg/dL (8.4-10.2); Carbon Dioxide 21 mmol/L (22-30); Chloride 106 mmol/L (98-107); Cholesterol 144 mg/dL (0-200); Estimated Glomerular Filt Rate 49; Glucose 100 mg/dL (65-110); HDL Direct 42 mg/dL; LDL Cholesterol Calculated 72 mg/dL (<130); Osmolality Calculated 283 mOsm/kg (285-295); Potassium 4.7 mmol/L (3.4-5.0); Sodium 135 mmol/L (137-145); Total Protein 7.4 g/dL (6.3-8.2); Triglycerides 151 mg/dL (<150)
[2024-12-16 14:12] LABS: Hemoglobin A1C 5.9 % (<5.7)
== END 2024-12-16 13:29 | disposition home or self-care (01) ==
LOC: CHSLAB 13:30
PROVIDERS: PCP Physician Assistant; Visit Provider Physician Assistant
DX: I10 Essential (primary) hypertension (principal); E78.5 Hyperlipidemia, unspecified; N28.9 Disorder of kidney and ureter, unspecified; R60.0 Localized edema; Z86.39 Personal history of other endocrine, nutritional and metabolic disease
CPT/HCPCS: 36415; 80053; 80061; 83036; 84443; 85025

== ENCOUNTER 2024-12-21 14:28 | Outpatient (CLI) | payer MEDICARE, SELFPAY ==
--- NOTE | ~2024-12-21 | US_ITS ---
EXAMINATION: US thyroid DATE: 12/21/2024 14:51 INDICATION: Abnormal ultrasound and outside institution. TECHNIQUE: Multiple ultrasound images of the thyroid were obtained. COMPARISON: None. FINDINGS: The right thyroid lobe measures 3.4 x 1.7 x 1.1 cm. Within the right lobe of the thyroid gland is a 17 x 13 x 12 mm nodule: Composition - spongiform Echogenicity - hypoechoic (2) Shape - wider than tall Margin -ill-defined Echogenic foci - none. = TR2 not suspicious. The left thyroid lobe measures 2.9 x 1.1 x 1.3 cm. The isthmus measures 0.5cm in anterior to posterior dimension. There is otherwise heterogeneous echotexture and echogenicity throughout the remainder of the thyroid gland. No additional discrete nodules identified. Normal vascular flow is present. IMPRESSION: TR2 nodule in the right lobe of the thyroid gland measuring 4.3 mm in greatest dimension. This nodule is not sonographically suspicious and no FNA or follow-up is recommended While follow-up is not recommended (as per TIRADs criteria) it may be performed, at the discretion of the referring clinician. Reviewed, dictated and finalized at location A. IMPRESSION: TR2 nodule in the right lobe of the thyroid gland measuring 4.3 mm in greatest dimension. This nodule is not sonographically suspicious and no FNA or follow-up is recomm ended While follow-up is not recommended (as per TIRADs criteria) it may be performed , at the discretion of the referring clinician.
== END 2024-12-21 14:29 | disposition home or self-care (01) ==
PROVIDERS: PCP Physician Assistant; Visit Provider Physician Assistant
DX: R94.6 Abnormal results of thyroid function studies (principal); E04.1 Nontoxic single thyroid nodule
CPT/HCPCS: 76536